=== PATIENT | female | born 1945 | race Caucasian/White ===

== ENCOUNTER 2016-10-25 08:00 | Outpatient (CLI) | payer MEDICARE, OTHER ==
[2016-10-25 09:02] LABS: Hemoglobin A1c 5.6 % (4.0-6.0)
[2016-10-25 09:08] LABS: ALT (SGPT) 21 U/L (0-55); AST (SGOT) 18 U/L (5-34); Alkaline Phosphatase 90 U/L (40-150); Anion Gap 14 mmol/L (10-20); BUN (Urea Nitrogen) 16 mg/dL (9.8-20.1); Bilirubin, Total 0.6 mg/dL (0.2-1.2); Calc. Creatinine Clearance 0 mL/min (70-130); Calcium 9.5 mg/dL (7.8-10.44); Carbon Dioxide 23 mmol/L (23-31); Chloride 111 mmol/L (98-107); Estimated GFR-MDRD 68; Globulin 2.7 g/dL (2.4-3.5); LDL Cholesterol, Calculated 86 mg/dL; Protein, Total 7.2 g/dL (5.8-8.1)
== END 2016-10-25 08:01 | disposition home or self-care (01) ==
LOC: BURLAB 08:00
PROVIDERS: ATTEND Family Medicine
DX: E11.9 Type 2 diabetes mellitus without complications (principal)
CPT/HCPCS: 36415; 80053; 80061; 83036

== ENCOUNTER 2016-12-06 08:32 | Outpatient (CLI) | payer MEDICARE, OTHER ==
[2016-12-06 10:03] LABS: Hemoglobin 14.1 g/dL (12.0-16.0); Mean Corpuscular HGB CONC 32.6 g/dL (32.0-36.0); Mean Corpuscular Volume 95.1 fl (81.0-99.0); Mean Platelet Volume 7.5 fL (7.4-10.4); Platelet Count 206 thou/uL (130-400); RBC Distribution Width 12.2 % (11.5-14.5); Red Blood Cell (RBC) Count 4.55 mill/uL (4.20-5.40); White Blood Cell (WBC) Count 7.1 thou/uL (4.8-10.8)
== END 2016-12-06 08:33 | disposition home or self-care (01) ==
LOC: BURLAB 08:32
PROVIDERS: ATTEND Physician Assistant Medical
DX: R19.7 Diarrhea, unspecified (principal)
CPT/HCPCS: 36415; 83516; 84443; 85027

== ENCOUNTER 2017-01-09 08:23 | Outpatient (CLI) | payer MEDICARE, OTHER ==
[2017-01-09 09:15] LABS: ALT (SGPT) 25 U/L (8-55); AST (SGOT) 18 U/L (5-34); Albumin 4.3 g/dL (3.4-4.8); Alkaline Phosphatase 87 U/L (40-150); Anion Gap 14 mmol/L (10-20); BUN (Urea Nitrogen) 15 mg/dL (9.8-20.1); Bilirubin, Total 0.7 mg/dL (0.2-1.2); Calc. Creatinine Clearance 0 mL/min (70-130); Carbon Dioxide 24 mmol/L (23-31); Cardiac Risk 2.2 (Less than 4.5); Chloride 112 mmol/L (98-107); Cholesterol 129 mg/dl (< 200 Desired); Estimated GFR-MDRD 68; Globulin 2.2 g/dL (2.4-3.5); Glucose 94 mg/dL (83-110); HDL Cholesterol 58 mg/dL (>60 Neg Risk); LDL Cholesterol, Calculated 59 mg/dL; Potassium 3.9 mmol/L (3.5-5.1); Protein, Total 6.5 g/dL (6.0-8.3); Sodium 146 mmol/L (136-145); Triglycerides 60 mg/dL (Less than 150)
== END 2017-01-09 08:24 | disposition home or self-care (01) ==
LOC: BURLAB 08:23
PROVIDERS: ATTEND Internal Medicine Cardiovascular Disease
DX: E78.00 Pure hypercholesterolemia, unspecified (principal)
CPT/HCPCS: 36415; 80053; 80061

== ENCOUNTER 2017-05-17 08:33 | Outpatient (CLI) | payer MEDICARE, OTHER ==
[2017-05-17 09:45] LABS: Hemoglobin A1c 6.1 % (4.0-6.0)
[2017-05-17 10:02] LABS: ALT (SGPT) 26 U/L (8-55); AST (SGOT) 22 U/L (5-34); Albumin 4.4 g/dL (3.4-4.8); Alkaline Phosphatase 98 U/L (40-150); Anion Gap 15 mmol/L (10-20); BUN (Urea Nitrogen) 13 mg/dL (9.8-20.1); Bilirubin, Total 0.9 mg/dL (0.2-1.2); Calc. Creatinine Clearance 0 mL/min (70-130); Calcium 9.6 mg/dL (7.8-10.44); Carbon Dioxide 23 mmol/L (23-31); Cardiac Risk 2.6 (Less than 4.5); Chloride 111 mmol/L (98-107); Cholesterol 161 mg/dl (< 200 Desired); Estimated GFR-MDRD 65; Globulin 2.6 g/dL (2.4-3.5); Glucose 120 mg/dL (83-110); HDL Cholesterol 63 mg/dL (>60 Neg Risk); LDL Cholesterol, Calculated 82 mg/dL; Potassium 4.2 mmol/L (3.5-5.1); Sodium 145 mmol/L (136-145); Triglycerides 80 mg/dL (Less than 150)
[2017-05-17 18:13] LABS: Creatinine, Urine 84.69 mg/dL (47-110); Microalbumin Urine Less than 1.0 mg/dL (0.5-50.0); Microalbumin/Creat Ratio 11.8 mg/g (Less than 30)
== END 2017-05-17 08:34 | disposition home or self-care (01) ==
LOC: BURLAB 08:33
PROVIDERS: ATTEND Family Medicine
DX: E11.9 Type 2 diabetes mellitus without complications (principal)
CPT/HCPCS: 36415; 80053; 80061; 82043; 83036